=== PATIENT | female | born 1945 | race Caucasian/White ===

== ENCOUNTER 2016-06-05 10:15 | Outpatient (RCR) | payer MEDICARE, BC ==
[~2016-06-05 10:15] MED LIST: ALEVE 220MG220 MG PO; ASPI325T6 PO; ASPIRIN 32325 MG/TAB PO; ASPIRIN E.C. 8181 MG PO; AZILECT1 MG PO; B-121000 MCG PO; CALCIUM/MAGNESI1 T13 PO; CELEBREX 200MG200 MG PO; CLARITIN 1010 MG/TAB PO; COMTAN 200MG T200 MG PO; CRANBERRY500 M3 PO; FERROUS SU325 MG/TAB PO; FIBER0.52 GM PO; FIBERCON PO; FISH OIL 1000MG1 CAP PO; FOLIC ACID0.4 MG PO; GLUCOSAMINE HCL; GLUCOSAMINE MSM1 TAB PO; LUTEIN 15 MG-0.1 SGL PO; MILK OF MA400 MG/52 PO; MULTI VITAMINS1 TAB PO; MULTIVITAMIN PO; NATURE'S BLE1000 MCG PO; NORCO 325 MG-7.1 TAB PO; OXAYDO5 MG PO; PARCOPA 25/101 UDTAB PO; REQUIP XL12 MG PO; SINEMET 25/101 UDTAB PO; VITAMIN C500 MG PO; VITAMIN D 1001000 IU PO; ZOCOR 20MG20 MG PO; ZOFRAN 4MG T4 MG/TAB PO
== END 2016-06-06 | disposition still patient (30) ==
LOC: WSPT
DX: Z96.651 Presence of right artificial knee joint (principal)
CPT/HCPCS: G8978-GP; G8979-GP

== ENCOUNTER 2016-07-15 10:00 | Outpatient (RCR) | payer MEDICARE, BC | END 2016-07-25 11:50 | disposition still patient (30) | LOC: WSPT 10:00 | DX: Z96.651 Presence of right artificial knee joint (principal) | CPT/HCPCS: G0283-GP; G8978-GP; G8979-GP; G8980-GP ==

== ENCOUNTER 2016-09-27 09:30 | Outpatient (RCR) | payer MEDICARE, BC | END 2016-12-19 | disposition still patient (30) | LOC: WSPT | DX: Z96.651 Presence of right artificial knee joint (principal) | CPT/HCPCS: G8978-GP; G8979-GP ==

== ENCOUNTER → 2017-04-23 | Outpatient (CLI) | payer MEDICARE, BC | LOC: MC.RAD 11:00 | DX: Z12.31 Encounter for screening mammogram for malignant neoplasm of breast (principal) ==

== ENCOUNTER → 2017-06-27 | Outpatient (CLI) | payer MEDICARE, BC | LOC: ZCOL.LAB 14:05 | DX: L89.893 Pressure ulcer of other site, stage 3 (principal) ==

== ENCOUNTER → 2017-07-11 | Outpatient (CLI) | payer MEDICARE, BC | LOC: ZCOL.LAB 15:07 | DX: L97.509 Non-pressure chronic ulcer of other part of unspecified foot with unspecified severity (principal); Z88.1 Allergy status to other antibiotic agents; Z88.5 Allergy status to narcotic agent ==

== ENCOUNTER → 2017-07-29 | Outpatient (CLI) | payer MEDICARE, BC | LOC: ZCOL.LAB 11:48 | DX: L97.519 Non-pressure chronic ulcer of other part of right foot with unspecified severity (principal) ==

== ENCOUNTER → 2017-09-11 | Outpatient (CLI) | payer MEDICARE, BC ==
[2017-09-11 13:41] LABS: CREATININE, serum 0.62 mg/dL (0.52-1.25)
== END ==
LOC: COL.LAB 13:10
PROVIDERS: Internal Medicine Cardiovascular Disease
DX: Z01.89 Encounter for other specified special examinations (principal)

== ENCOUNTER → 2018-05-11 | Outpatient (CLI) | payer MEDICARE, BC | LOC: MC.RAD 09:56 | DX: Z12.31 Encounter for screening mammogram for malignant neoplasm of breast (principal) ==

== ENCOUNTER 2018-06-28 23:47 | Emergency (ER) | payer MEDICARE, BC ==
[~2018-06-28] VITALS: Ht 162.6 cm; Wt 61.4 kg
[2018-06-28 23:55] VITALS: BP 155/72; TEMP 97.7
[2018-06-29] MEDS ORDERED: LIDODERM 5% PATC1 EA TP (01:15)
[2018-06-29] MEDS ORDERED: ZOFRAN 4MG T4 MG/TAB PO (01:15)
[2018-06-29 01:50] VITALS: PULSE 71
== END 2018-06-29 01:50 | disposition home or self-care (01) ==
LOC: COL.ER 23:47
DX: S20.212A Contusion of left front wall of thorax, initial encounter (principal); G20 Parkinson's disease; E78.5 Hyperlipidemia, unspecified; W01.0XXA Fall on same level from slipping, tripping and stumbling without subsequent striking against object, initial encounter

== ENCOUNTER 2019-01-18 14:15 | Outpatient (RCR) | payer MEDICARE, BC ==
[~2019-01-18 14:15] MED LIST changes: +LIDODERM 5% PATC1 EA TP
== END 2019-02-28 ==
LOC: WSPT
DX: M23.51 Chronic instability of knee, right knee (principal)

== ENCOUNTER 2019-03-10 20:17 | Emergency (ER) | payer MEDICARE, BC ==
[~2019-03-10] VITALS: Ht 162.6 cm; Wt 61.4 kg
[2019-03-10 20:27] VITALS: TEMP 98.6
[2019-03-10 21:51] VITALS: BP 122/55; PULSE 82
== END 2019-03-10 21:51 | disposition home or self-care (01) ==
LOC: COL.ER 20:17
DX: S01.01XA Laceration without foreign body of scalp, initial encounter (principal); G20 Parkinson's disease; E78.00 Pure hypercholesterolemia, unspecified; R40.2412 Glasgow coma scale score 13-15, at arrival to emergency department; W19.XXXA Unspecified fall, initial encounter; Y92.009 Unspecified place in unspecified non-institutional (private) residence as the place of occurrence of the external cause

== ENCOUNTER → 2019-03-22 | Outpatient (CLI) | payer MEDICARE, BC ==
[2019-03-22 10:51] VITALS: BP 163/70; PULSE 84; TEMP 98.1
== END ==
LOC: COL.ER 10:47
DX: S01.01XD Laceration without foreign body of scalp, subsequent encounter (principal); X58.XXXD Exposure to other specified factors, subsequent encounter

== ENCOUNTER 2019-03-24 10:45 | Emergency (ER) | payer MEDICARE, BC ==
[~2019-03-24] VITALS: Ht 162.6 cm; Wt 62.7 kg
[2019-03-24 10:56] VITALS: TEMP 97.4
[2019-03-24] MEDS ORDERED: NORCO 325 MG-51 TAB PO (12:54)
[2019-03-24] MEDS ORDERED: ZOFRAN ODT4 MG PO (12:54)
[2019-03-24 13:50] VITALS: BP 150/81; PULSE 70
== END 2019-03-24 13:50 | disposition home or self-care (01) ==
LOC: COL.ER 10:45
DX: R07.89 Other chest pain (principal); G20 Parkinson's disease; Z79.82 Long term (current) use of aspirin; W19.XXXA Unspecified fall, initial encounter; W22.8XXA Striking against or struck by other objects, initial encounter

== ENCOUNTER → 2019-06-10 | Outpatient (CLI) | payer MEDICARE, BC ==
[~2019-06-10] MED LIST changes: +NORCO 325 MG-51 TAB PO; +ZOFRAN ODT4 MG PO
== END ==
LOC: MC.RAD 15:36
DX: Z12.31 Encounter for screening mammogram for malignant neoplasm of breast (principal); Z95.0 Presence of cardiac pacemaker

== ENCOUNTER 2020-01-20 13:09 | Outpatient (CLI) | payer MEDICARE, BC ==
[~2020-01-20] VITALS: Ht 162.6 cm; Wt 66.3 kg
[2020-01-20] VITALS (8 sets, daily range): BP systolic 137–156; BP diastolic 68–82; PULSE 64–80
[~2020-01-20 13:09] MED LIST changes: +CYMBALTA 60MG60 MG PO; +MOBIC 7.5MG7.5 MG PO; +TYLENOL 325MG325 MG PO; -VITAMIN D 1001000 IU PO; +VITAMIN D31000 IU PO
--- NOTE | 2020-01-20 16:05 | NUR ---
Discharge instructions given to pt.Pt verbalizes understanding.Pt escorted out via Wheelchair by this nurse.
== END 2020-01-20 16:55 | disposition home or self-care (01) ==
LOC: COL.RAD 13:09
DX: M43.16 Spondylolisthesis, lumbar region (principal); M54.16 Radiculopathy, lumbar region; M48.061 Spinal stenosis, lumbar region without neurogenic claudication; M51.26 Other intervertebral disc displacement, lumbar region; M47.816 Spondylosis without myelopathy or radiculopathy, lumbar region; S32.030A Wedge compression fracture of third lumbar vertebra, initial encounter for closed fracture; Z98.890 Other specified postprocedural states
CPT/HCPCS: Q9965

== ENCOUNTER 2020-04-10 13:30 | Outpatient (RCR) | payer MEDICARE, BC | END 2020-04-11 | disposition home or self-care (01) | LOC: WSPT | DX: G20 Parkinson's disease (principal); M54.5 Low back pain; M25.561 Pain in right knee; G89.29 Other chronic pain ==

== ENCOUNTER 2020-05-08 11:00 | Outpatient (RCR) | payer MEDICARE, BC | END 2020-05-15 | disposition home or self-care (01) | LOC: WSPT | DX: M54.40 Lumbago with sciatica, unspecified side (principal); M25.561 Pain in right knee ==

== ENCOUNTER 2020-06-05 11:15 | Outpatient (RCR) | payer MEDICARE, BC | END 2020-06-07 12:46 | disposition home or self-care (01) | LOC: WSC 11:15 | DX: M25.561 Pain in right knee (principal); M54.40 Lumbago with sciatica, unspecified side ==

== ENCOUNTER → 2020-06-13 | Outpatient (CLI) | payer MEDICARE, BC | LOC: MC.RAD 10:27 | DX: Z12.31 Encounter for screening mammogram for malignant neoplasm of breast (principal); R92.2 Inconclusive mammogram ==

== ENCOUNTER 2020-11-10 18:40 | Emergency (ER) | payer MEDICARE, BC ==
[~2020-11-10] VITALS: Ht 162.6 cm; Wt 63.6 kg
[2020-11-10 20:30] VITALS: BP 122/64; PULSE 72; TEMP 97.4
== END 2020-11-10 20:30 | disposition home or self-care (01) ==
LOC: COL.ER 18:40
DX: S01.01XA Laceration without foreign body of scalp, initial encounter (principal); G20 Parkinson's disease; Z79.899 Other long term (current) drug therapy; W01.198A Fall on same level from slipping, tripping and stumbling with subsequent striking against other object, initial encounter; Y92.009 Unspecified place in unspecified non-institutional (private) residence as the place of occurrence of the external cause

== ENCOUNTER → 2020-11-21 | Outpatient (CLI) | payer MEDICARE, BC ==
[2020-11-21 11:30] VITALS: BP 126/57; PULSE 68; TEMP 97.7
== END ==
LOC: COL.ER 11:17
DX: Z48.02 Encounter for removal of sutures (principal)

== ENCOUNTER 2021-02-13 12:52 | Emergency (ER) | payer MEDICARE, BC ==
[~2021-02-13] VITALS: Ht 162.6 cm; Wt 56.8 kg
[2021-02-13 13:06] VITALS: TEMP 98.4
[2021-02-13 13:58] VITALS: BP 129/71; PULSE 66
== END 2021-02-13 13:58 | disposition home or self-care (01) ==
LOC: COL.ER 12:52
DX: S09.90XA Unspecified injury of head, initial encounter (principal); S01.01XA Laceration without foreign body of scalp, initial encounter; G20 Parkinson's disease; Z79.899 Other long term (current) drug therapy; W19.XXXA Unspecified fall, initial encounter; W22.03XA Walked into furniture, initial encounter; Y92.000 Kitchen of unspecified non-institutional (private) residence as the place of occurrence of the external cause

== ENCOUNTER → 2021-02-22 | Outpatient (CLI) | payer MEDICARE, BC ==
[2021-02-22 13:33] VITALS: BP 132/79; PULSE 80; TEMP 98.8
== END ==
LOC: COL.ER 13:18
DX: Z48.02 Encounter for removal of sutures (principal)

== ENCOUNTER 2021-09-18 17:56 | Emergency (ER) | payer MEDICARE, BC ==
[~2021-09-18] VITALS: Ht 162.6 cm; Wt 50.0 kg
[2021-09-18 18:08] VITALS: TEMP 98.7
[2021-09-18 20:00] VITALS: BP 153/96; PULSE 72
== END 2021-09-18 20:15 | disposition home or self-care (01) ==
LOC: COL.ER 17:56
DX: S01.01XA Laceration without foreign body of scalp, initial encounter (principal); W10.9XXA Fall (on) (from) unspecified stairs and steps, initial encounter; W22.8XXA Striking against or struck by other objects, initial encounter

== ENCOUNTER 2023-05-28 18:54 | Inpatient (IN) | payer MEDICARE, BC ==
[~2023-05-28] VITALS: Ht 162.6 cm; Wt 44.0 kg
[~2023-05-28 18:54] MED LIST changes: +CLEOCIN HCL300 MG PO; +ELDEPRYL 5MG5 MG/CAP PO; +LIPITOR 40MG TA40 MG PO
[2023-05-28] MEDS ORDERED: NS 1,000 ML IV ONE (19:15)
[2023-05-28 19:34] LABS: BASO % 0.5 % (0.0-2.0); EOS # 0.2 K/mm3 (0.0-0.7); EOS % 2.6 % (0.0-4.0); GRAN % 54.7 % (42.2-75.2); HEMATOCRIT 38.4 % (37.0-47.0); HEMOGLOBIN 12.3 g/dl (12.5-16.0); LYMPH # 2.4 K/mm3 (1.2-3.4); LYMPH % 33.2 % (20.0-51.0); MEAN CELL VOLUME 102 fl (80.0-100.0); MEAN CORPUSCULAR HEMOGLOBIN 33 pg (27-31); MEAN CORPUSCULAR HGB CONC 32 g/dl (33.0-37.0); MEAN PLATELET VOLUME 10.7 fl (7.4-10.4); MONO # 0.6 K/mm3 (0.1-0.6); MONO % 8.7 % (1.7-9.3); PLATELET COUNT 247 K/mm3 (130-400); RED BLOOD COUNT 3.76 M/mm3 (4.10-5.30); REDCELL DISTRIBUTION WIDTH-CV 13.1 % (11.5-14.5)
[2023-05-28 19:39] LABS: INR 1.1 (0.8-3.0); PROTHROMBIN TIME 11.7 SECONDS (9.7-12.8)
[2023-05-28 19:42] LABS: PARTIAL THROMBOPLASTIN TIME 27.9 SECONDS (26.0-37.0)
[2023-05-28 19:50] LABS: ALKALINE PHOSPHATASE 56 U/L (40-150); ANION GAP 17 mmol/L (7-16); AST,SGOT 16 U/L (5-34); BILIRUBIN,TOTAL 0.5 mg/dL (0.2-1.2); BLOOD UREA NITROGEN 13 mg/dL (10-20); CALCIUM 10.1 mg/dL (8.4-10.2); CARBON DIOXIDE 23 mmol/L (23-31); CHLORIDE 100 mmol/L (98-107); CREATININE, serum 0.82 mg/dL (0.57-1.11); GLUCOSE 146 mg/dL (70-99); SODIUM 140 mmol/L (136-145); TOTAL PROTEIN 7.1 gm/dL (6.2-8.1)
[2023-05-28 19:56] LABS: ALANINE AMINOTRANSFERASE < 6 U/L (0-55)
[2023-05-28 19:58] LABS: TROPONIN-I 0.014 ng/mL (0.00-0.033)
[2023-05-28 20:02] LABS: COLLECTION METHOD IN
[2023-05-28] MEDS ORDERED: Iohexol 300 - 100 ML VIAL IV ONE (20:25)
[2023-05-28] MEDS ORDERED: NS 74 ML IV SCH (20:26)
[2023-05-28 20:27] LABS: URINE COLOR Yellow (YELLOW)
[2023-05-28 20:28] LABS: URINE APPEARANCE Clear (CLEAR/HAZY); URINE BLOOD Negative (NEGATIVE); URINE GLUCOSE Negative (NEGATIVE); URINE KETONE Negative (NEGATIVE); URINE NITRATE Negative (NEGATIVE); URINE PROTEIN(semi-quant) Negative (NEGATIVE); URINE UROBILINOGEN 0.2 E.U/dL (0.2-1.0)
[2023-05-28 20:29] LABS: URINE RBC 0-2 /hpf (0-2)
[2023-05-28 20:30] LABS: SQUAMOUS EPITHELIAL 0-2 /hpf (0-10)
[2023-05-28 20:31] LABS: MUCOUS Present (NOT PRESENT); URINE BACTERIA Many /hpf (NONE SEEN)
[2023-05-28] MEDS ORDERED: NS 1,000 ML IV SCH (22:00)
[2023-05-28] MEDS ORDERED: NS IV SCH (22:00)
[2023-05-28] MEDS ORDERED: LABETALOL IV SCH (22:00)
[2023-05-28] MEDS ORDERED: Acetaminophen 325 MG TAB PO PRN (22:00)
[2023-05-28] MEDS ORDERED: SYMMETREL100 M1 PO (22:46)
[2023-05-28] MEDS ORDERED: SINEMET CR 50 M1 TER PO (22:47)
[2023-05-28] MEDS ORDERED: SINEMET 25/101 UDTAB PO (22:48)
[2023-05-28] MEDS ORDERED: REQUIP2 MG PO (22:50)
[2023-05-28] MEDS ORDERED: Carbidopa/Levodopa CR 25-100MG TAB PO SCH (23:01)
[2023-05-28] MEDS ORDERED: COLACE 100100 MG/CAP PO (23:02)
[2023-05-28] MEDS ORDERED: MAG OX 250 PO (23:03)
[2023-05-28] MEDS ORDERED: ZOLOFT 50MG50 MG PO (23:04)
[2023-05-28] MEDS ORDERED: MIRALAX PA17 GM/Dose PO (23:04)
[2023-05-28] MEDS ORDERED: TYLENOL 500MG500 MG PO (23:06)
[2023-05-28] MEDS ORDERED: Acetaminophen 500 MG TAB PO SCH (23:15)
[2023-05-28 23:50] VITALS: BP 149/83; PULSE 67; TEMP 97.6
--- NOTE | 2023-05-28 23:50 | NUR ---
PATIENT ARRIVED TO ICU VIA BED FROM ER. PATIENT ARRIVED ON ROOM AIR. NEURO STATUS ASSESSED. PATIENT IS A/O X4 WITH INTERMITTENT CONFUSION. PATIENT ABLE TO FOLLOW COMMANDS AT THIS TIME. PATIENT ARRIVED TO ICU WITH SHIRT, JACKET, PANTS, PURSE, AND RING. PATIENT DENIED VALUABLES TO BE SENT TO SECURITY AT THIS TIME.
[2023-05-29] VITALS (880 sets, daily range): BP systolic 131–192; BP diastolic 70–146; PULSE 50–75; TEMP 97.4–98.4; O2SAT 85–100
[2023-05-29] MEDS ORDERED: *Potassium Replacement Protocol MC SCH (00:15)
[2023-05-29] MEDS ORDERED: Potassium Chloride 100 ML IV SCH (00:15)
[2023-05-29 05:49] LABS: HEMOGLOBIN 11.8 g/dl (12.5-16.0); MEAN CELL VOLUME 98 fl (80.0-100.0); MEAN CORPUSCULAR HEMOGLOBIN 33 pg (27-31); MEAN CORPUSCULAR HGB CONC 34 g/dl (33.0-37.0); MEAN PLATELET VOLUME 9.4 fl (7.4-10.4); PLATELET COUNT 222 K/mm3 (130-400); RED BLOOD COUNT 3.57 M/mm3 (4.10-5.30)
--- NOTE | 2023-05-29 07:00 | NUR ---
Report received from NATALYA Foster; patient currently resting in bed with eyes closed. Patient has potassium being replaced and is also getting fluids through peripheral lines, bilaterally in the forearms. Patient has a Schmidt catheter in place, is on room air and vital signs are within normal limits this morning.
[2023-05-29 07:28] LABS: CALCIUM 9.1 mg/dL (8.4-10.2); CHOLESTEROL RISK RATIO 2.3; CREATININE, serum 0.68 mg/dL (0.57-1.11); POTASSIUM 3.4 mmol/L (3.5-4.5)
[2023-05-29] MEDS ORDERED: Polyethylene Glycol 3350 17 GM PDS PO SCH (08:00)
[2023-05-29] MEDS ORDERED: Magnesium Oxide 400 MG TAB PO SCH (09:00)
[2023-05-29] MEDS ORDERED: Sertraline 50 MG TAB PO SCH (09:00)
[2023-05-29] MEDS ORDERED: Docusate Sodium 100 MG CAP PO SCH (09:00)
[2023-05-29] MEDS ORDERED: rOPINIRole 1 MG TAB PO SCH (10:00)
--- NOTE | 2023-05-29 10:52 | NUR ---
funeral workers met with patient to discuss discharge planning. Patient lives in [place] with her , Gilbert, P# [phone], secondary contact is her son Alex P# [phone]. PCP is Amanda, pharmacy is [facility]. DPOA-HC is her , Gilbert, then two sons, Poli and Alex. Patient has a walker and reports sometimes she needs assistance with using the restroom. Patient's family transports her to appointments. SW met with Gilbert and patient's RN and he confirmed the above information. Gilbert asked about patient's code status. Patient is currently listed as a full code. Gilbert reported he would contact the physician's office and see if they had a DNR for her as he believed she was DNR during last stay.
[2023-05-29] MEDS ORDERED: LIPITOR 40MG TA40 MG PO (11:45)
[2023-05-29] MEDS ORDERED: ASPIRIN E.C. 8181 MG PO (11:45)
[2023-05-29] MEDS ORDERED: ATROPINE SULFATE5 ML SL (11:55)
--- NOTE | 2023-05-29 18:30 | NUR ---
Reported off to Bela Taylor RN, on medical floor. Patient taken up in wheelchair by this nurse, accompanied by her . Patient's belongings were sent up with patient. Patient was taken up with IV fluids running and a Schmidt catheter in place. Patient's vital signs were within normal limits and patient was on room air. Patient's NIH stroke scale scores were 3 for the majority of the day and patient was increasingly more awake and alert as the day went on. Patient was stable upon transfer; Bela Taylor and two techs met us in the room and patient was placed in the bed and dinner was going to be ordered.
[2023-05-29] MEDS ORDERED: Atorvastatin 40 MG TAB PO SCH (21:00)
[2023-05-30] VITALS (18 sets, daily range): BP systolic 114–191; BP diastolic 64–89; PULSE 55–82; TEMP 96.5–98
--- NOTE | 2023-05-30 01:27 | NUR ---
report received from Bela Taylor RN, pt not on unit at time report was given. pt arrived around 1840 from ICU. patient alert and oriented x3 with some forgetfullness with the year. left sided weakness noted, pt transfer to bedside commode with x1 assist pivot. pt taken down to CT at 1999 via wheelchair. pt denies chest pain and shortness of breath, able to respond to commands and orientation questions appropriately with some aphasia and dysarthia noted. small scattered bruising on extremities, no additional remarkable skin findings noted. pt NPO at midnight, verbally understood. IV in LF and RF ar patent, sites are clean dry and intact with NS running at 75 ml/hr in the RF. johnson draining a cloudy yellow with slight pink tinted urine. pt has no further needs, questions, or concerns at this time. fall precautions in place, call light within reach. will continue to monitor.
[2023-05-30 07:57] LABS: CALCIUM 8.5 mg/dL (8.4-10.2); CREATININE, serum 0.66 mg/dL (0.57-1.11); POTASSIUM 3.4 mmol/L (3.5-4.5)
[2023-05-30] MEDS ORDERED: Potassium Chloride 100 ML IV SCH (08:15)
[2023-05-30 08:16] LABS: BASO % 0.5 % (0.0-2.0); EOS # 0.2 K/mm3 (0.0-0.7); EOS % 2.7 % (0.0-4.0); GRAN # 3.8 K/mm3 (1.4-6.5); GRAN % 67.8 % (42.2-75.2); HEMOGLOBIN 11.3 g/dl (12.5-16.0); LYMPH # 1.1 K/mm3 (1.2-3.4); LYMPH % 20.2 % (20.0-51.0); MEAN CELL VOLUME 101 fl (80.0-100.0); MEAN CORPUSCULAR HEMOGLOBIN 33 pg (27-31); MEAN CORPUSCULAR HGB CONC 32 g/dl (33.0-37.0); MEAN PLATELET VOLUME 10.6 fl (7.4-10.4); MONO # 0.5 K/mm3 (0.1-0.6); MONO % 8.6 % (1.7-9.3); PLATELET COUNT 202 K/mm3 (130-400); RED BLOOD COUNT 3.48 M/mm3 (4.10-5.30); REDCELL DISTRIBUTION WIDTH-CV 13.3 % (11.5-14.5)
[2023-05-30 08:21] LABS: HEMATOCRIT 35.1 % (37.0-47.0)
[2023-05-30] MEDS ORDERED: Regadenoson 0.08 MG/ML 5 ML SYRINGE IV SCH (09:12)
--- NOTE | 2023-05-30 11:09 | NUR ---
SW Student faxed clinical updates to [facility] (fax#[phone]).
--- NOTE | 2023-05-30 13:30 | NUR ---
PATIENT HAD BLOOD PRESSURE OF 191/86. NOTIFIED PROVIDER. LABETALOL DOSE OF 10MG ORDERED AND ADMINISTERED. WILL RECHECK. PATIENT IS RESTING COMFORTABLY IN BED. X3 BED RAILS UP. AT BEDSIDE.
[2023-05-30] MEDS ORDERED: ELIQUIS 5MG PO (13:53)
[2023-05-30] MEDS ORDERED: TOPROL XL 25MG25 MG PO (13:55)
[2023-05-30] MEDS ORDERED: hydrALAZINE 20 MG/ML 1 ML VIAL IV ONE (14:00)
--- NOTE | 2023-05-30 14:19 | NUR ---
PATIENT BLOOD PRESSURE RECHECK WAS 182/75 PROVIDER ORDERED 1X DOSE OF HYDRALAZINE 10MG.
--- NOTE | 2023-05-30 14:50 | NUR ---
sample shoe inspector and reworker was informed by NATALYA Patel that pt's , Gilbert might need assistance with a ride back to [facility]. SW called [facility] and they confirmed they do not provide transportation. LIZA spoke with Gilbert and he said they feel like they can manage as his son is also coming to assist. Gilbert inquired about HH as they have used it in the past and benefitted from it. He reports that they have used [facility] in the past. He asked for them to call the AL manager er to schedule. SW Student Mckenzie faxed discharge orders and sent [facility] a referral. Discharge Plan: [facility] with HH?
[2023-05-30] MEDS ORDERED: MULTAQ400 MG PO (14:51)
--- NOTE | 2023-05-30 15:43 | NUR ---
AT BEDSIDE. WENT OVER DISCHARGE PAPERWORK. ACKNOWLEDGED UNDERSTANDING OF FOLLOW UP APPOINTMENTS,NEW MEDICATIONS ADDED. IV'S DISCONTINUED TELEMETRY DISCONTINUED. PATIENT WAS DRESSED BY NURSING STAFF AND TRANSPORTED TO ED ENTRANCE VIA WHEELCHAIR TO DISCHARGE BACK TO [facility] WITH .
--- NOTE | 2023-06-02 13:50 | NUR ---
harm reduction worker contacted Davy at [facility] and confirmed that they received the home health orders and plan to admit the patient for care.
== END 2023-05-30 15:35 | disposition home or self-care (01) | DRG 57 ==
LOC: COL.ER 18:54 → ICU 22:02 → MEDICAL 05-29 18:34
PROVIDERS: Emergency Medicine; Nurse Practitioner Family; Physician Assistant; ADMIT Internal Medicine
DX: G81.94 Hemiplegia, unspecified affecting left nondominant side (principal); R47.01 Aphasia; E78.5 Hyperlipidemia, unspecified; I48.91 Unspecified atrial fibrillation; G20.A1 Parkinson's disease without dyskinesia, without mention of fluctuations; G25.81 Restless legs syndrome; F32.A Depression, unspecified; D64.9 Anemia, unspecified; E87.6 Hypokalemia; R73.9 Hyperglycemia, unspecified
CPT/HCPCS: A9500-JZ; J0360; J1920; J2785; J3101; J3480; J7030; Q9967

== ENCOUNTER 2024-01-04 13:22 | Observation (INO) | payer MEDICARE, BC ==
[~2024-01-04] VITALS: Ht 160 cm; Wt 88.0 kg
[~2024-01-04 13:22] MED LIST changes: +ATROPINE SULFATE5 ML SL; +COLACE 100100 MG/CAP PO; +ELIQUIS 5MG PO; +K-TAB10 PO; +MAG OX 250 PO; +MIRALAX PA17 GM/Dose PO; +MULTAQ400 MG PO; +REQUIP2 MG PO; +SINEMET CR 50 M1 TER PO; +SYMMETREL100 M1 PO; +TOPROL XL 25MG25 MG PO; +TYLENOL 500MG500 MG PO; +VANTIN 200200 MG/TAB PO; +ZOLOFT 50MG50 MG PO
[2024-01-04] MEDS ORDERED: NS 1,000 ML IV SCH ×2 (14:00→16:00)
[2024-01-04 14:10] LABS: BASO # 0.1 K/mm3 (0.0-0.2); BASO % 0.8 % (0.0-2.0); EOS # 0.1 K/mm3 (0.0-0.7); EOS % 1.4 % (0.0-4.0); GRAN # 4.2 K/mm3 (1.4-6.5); HEMATOCRIT 46.2 % (37.0-47.0); HEMOGLOBIN 15.2 g/dl (12.5-16.0); LYMPH # 1.7 K/mm3 (1.2-3.4); LYMPH % 24.8 % (20.0-51.0); MEAN CELL VOLUME 100 fl (80.0-100.0); MEAN CORPUSCULAR HEMOGLOBIN 33 pg (27-31); MEAN CORPUSCULAR HGB CONC 33 g/dl (33.0-37.0); MEAN PLATELET VOLUME 9.1 fl (7.4-10.4); MONO # 0.7 K/mm3 (0.1-0.6); MONO % 9.8 % (1.7-9.3); PLATELET COUNT 344 K/mm3 (130-400); RED BLOOD COUNT 4.62 M/mm3 (4.10-5.30); REDCELL DISTRIBUTION WIDTH-CV 13.6 % (11.5-14.5)
[2024-01-04 14:24] LABS: ALBUMIN 4.5 g/dL (3.4-4.8); ALKALINE PHOSPHATASE 72 U/L (40-150); ANION GAP 15 mmol/L (7-16); AST,SGOT 14 U/L (5-34); BILIRUBIN,TOTAL 0.5 mg/dL (0.2-1.2); BLOOD UREA NITROGEN 17 mg/dL (10-20); C-REACTIVE PROTEIN 0.06 mg/dL (0.00-0.50); CALCIUM 10.6 mg/dL (8.4-10.2); CHLORIDE 99 mEq/L (98-107); CREATININE, serum 1.03 mg/dL (0.57-1.11); GLUCOSE 98 mg/dL (70-99); SODIUM 136 mEq/L (136-145); TOTAL PROTEIN 8.4 g/dl (6.2-8.1)
[2024-01-04 14:31] LABS: ALANINE AMINOTRANSFERASE < 6 U/L (0-55)
[2024-01-04 15:10] LABS: COLLECTION METHOD CATHETER
[2024-01-04 15:14] LABS: URINE APPEARANCE CLEAR (CLEAR/HAZY); URINE BLOOD NEGATIVE (NEGATIVE); URINE COLOR YELLOW (YELLOW); URINE GLUCOSE NEGATIVE (NEGATIVE); URINE KETONE NEGATIVE (NEGATIVE); URINE NITRATE NEGATIVE (NEGATIVE); URINE PROTEIN(semi-quant) NEGATIVE (NEGATIVE); URINE UROBILINOGEN 0.2 E.U/dL (0.2-1.0)
[2024-01-04] MEDS ORDERED: *Potassium Replacement Protocol MC SCH (16:00)
[2024-01-04 17:47] VITALS: BP 154/88; PULSE 65; TEMP 97.3
[2024-01-04] MEDS ORDERED: Sertraline 50 MG TAB PO SCH (17:56)
[2024-01-04] MEDS ORDERED: rOPINIRole 1 MG TAB PO SCH (18:00)
--- NOTE | 2024-01-04 18:11 | NUR ---
PATIENT ARRIVED TO MEDICAL UNIT. ORIENTED PATIENT AND DIL TO ROOM. IVF INFUSING. UPDATED ON PLAN OF CARE. PATIENT RESTING IN BED. ADMISSION INTAKE AND ASSESSMENT COMPLETED. MED REC UPDATED. BED ALARMS IN PLACE, CALL LIGHT WITHIN REACH. WILL CONTINUE TO MONITOR.
[2024-01-04 18:17] VITALS: BP_SYST 154
[2024-01-04] MEDS ORDERED: NORVASC2.5 MG PO (19:05)
[2024-01-04 19:12] VITALS: BP 146/83; PULSE 64; TEMP 97.8
[2024-01-04 20:00] VITALS: BP_SYST 128
--- NOTE | 2024-01-04 20:30 | NUR ---
Initial shift assessment done-oriented to person and place, knows year/president, does not know month/day-- mumbling at times/hard to understand, incontinent of urine-- tried the Purewick but pt too thin/moving in bed so not effective. Taking pills with water- no issues. Cooperative. Bed alarm on- call light demonstrated for patient. Tele on- Sinus dys. IV fluids of NS at 75cc/hr.
[2024-01-04] MEDS ORDERED: Atorvastatin 40 MG TAB PO SCH (21:00)
[2024-01-04] MEDS ORDERED: Metoprolol Tartrate 25 MG TAB PO SCH (21:00)
[2024-01-04 23:56] VITALS: BP 128/85; PULSE 65; TEMP 97.8
[2024-01-05] VITALS (12 sets, daily range): BP systolic 113–183; BP diastolic 71–90; PULSE 69–87; TEMP 97.4–98.2
--- NOTE | 2024-01-05 05:30 | NUR ---
Has been sleeping well all night-- repositioned every couple hours, incontinent of urine x3, stoolx1, VSS, remain hard to understand/mumbling at times, does not want to be disturbed,curled up on her side-warm blanket given.
--- NOTE | 2024-01-05 07:00 | NUR ---
Patient sleeping. Bedside report. Easily arousable, oriented to self. Pt bottom checked, she had an incontinent episode. Hygiene provided. Fluids hanged. Pt came back to sleep.
[2024-01-05] MEDS ORDERED: hydrALAZINE 25 MG TAB PO SCH (08:31)
[2024-01-05] MEDS ORDERED: Apixaban 5 MG TABLET PO SCH (09:00)
[2024-01-05] MEDS ORDERED: amLODIPine 5 MG TAB PO SCH (09:00)
[2024-01-05] MEDS ORDERED: Lisinopril 10 MG TAB PO SCH (09:00)
--- NOTE | 2024-01-05 09:09 | NUR ---
SW attended clinical rounds with team. Patient able to answer simple yes/no questions with physician. SW called patient's Gilbert ([phone]) and son Alex ([phone]). is patient's DPOA with two sons, Alex and Poli listed as alternate agents. Patient resides at [facility] in [place], sees Dr. Patel as her PCP and uses [facility] pharmacy. Patient is wheelchair bound. states patient knows people but is not aware of situations around her. Plan is to return to assisted living at discharge with and son to drive her. Discharge plan: Home to [facility]
[2024-01-05 09:48] LABS: BASO % 0.7 % (0.0-2.0); EOS # 0.1 K/mm3 (0.0-0.7); EOS % 1.6 % (0.0-4.0); GRAN # 3.9 K/mm3 (1.4-6.5); GRAN % 71.1 % (42.2-75.2); HEMATOCRIT 39.5 % (37.0-47.0); LYMPH % 18.1 % (20.0-51.0); MEAN CELL VOLUME 101 fl (80.0-100.0); MEAN CORPUSCULAR HEMOGLOBIN 33 pg (27-31); MEAN CORPUSCULAR HGB CONC 32 g/dl (33.0-37.0); MEAN PLATELET VOLUME 8.8 fl (7.4-10.4); MONO # 0.5 K/mm3 (0.1-0.6); MONO % 8.1 % (1.7-9.3); PLATELET COUNT 304 K/mm3 (130-400); RED BLOOD COUNT 3.91 M/mm3 (4.10-5.30); REDCELL DISTRIBUTION WIDTH-CV 13.5 % (11.5-14.5)
[2024-01-05 10:00] LABS: HEMOGLOBIN 12.8 g/dl (12.5-16.0)
[2024-01-05 10:01] LABS: ALBUMIN 3.8 g/dL (3.4-4.8); CREATININE, serum 0.78 mg/dL (0.57-1.11); MAGNESIUM 1.7 mg/dL (1.6-2.6); PHOSPHOROUS 3.1 mg/dL (2.3-4.7); POTASSIUM 4.3 mEq/L (3.5-4.5)
--- NOTE | 2024-01-05 12:10 | NUR ---
D: Mail Examiner stopped by room on rounds. A: Pt was resting and content. Mail Examiner spoke with her . No needs right now. P: Mail Examiner informed pt's that if she needed anything from the reserves clerk area to let their nurse know. Mail Examiner will follow up as needed.
--- NOTE | 2024-01-05 12:39 | NUR ---
LIZA faxed clinicals to [facility].
[2024-01-05] MEDS ORDERED: CENA K20 MEQ/15 PO (13:42)
--- NOTE | 2024-01-05 17:28 | NUR ---
Patient's stayed with patient assisting her with eating. Patient ate all her 3 meals. More alert at this time. Getting fluids per orders.
[2024-01-05] MEDS ORDERED: Acetaminophen 325 MG TAB PO PRN (21:00)
[2024-01-05] MEDS ORDERED: Carbidopa/Levodopa CR 25-100MG TAB PO SCH (22:00)
[2024-01-05] MEDS ORDERED: rOPINIRole 1 MG TAB PO SCH (22:00)
[2024-01-06 01:37] VITALS: BP_SYST 164
--- NOTE | 2024-01-06 02:04 | NUR ---
patient lying in bed, alert and oriented x3. denies chest pain and shortness of breath. reports headache and discomfort in right knee, per request, DAYTON Lock notified, new orders placed. IV in LF is patent, site CDi with NS running at 75 ml/hr. right elbow abrasion noted with mepilex dressing applied, CDI. redness to sacrum, mepilex CDI, large loose BM noted, cleaned barrier cream applied. pillow to elevate heels provided. fall precautions in place, call light within reach. pt has no further needs, questions, or concerns at this time
[2024-01-06 03:06] VITALS: BP 139/76; PULSE 54; TEMP 97.6
[2024-01-06 04:14] VITALS: BP_SYST 139
--- NOTE | 2024-01-06 07:05 | NUR ---
appears to be sleeping, awakens easily and lab in to draw blood, bedside shift report received from NATALYA Valle
[2024-01-06 07:50] LABS: BASO % 0.7 % (0.0-2.0); EOS # 0.1 K/mm3 (0.0-0.7); EOS % 2.2 % (0.0-4.0); GRAN % 67.1 % (42.2-75.2); HEMATOCRIT 37.2 % (37.0-47.0); HEMOGLOBIN 12.4 g/dl (12.5-16.0); LYMPH # 1.3 K/mm3 (1.2-3.4); LYMPH % 21.9 % (20.0-51.0); MEAN CELL VOLUME 98 fl (80.0-100.0); MEAN CORPUSCULAR HEMOGLOBIN 33 pg (27-31); MEAN CORPUSCULAR HGB CONC 33 g/dl (33.0-37.0); MEAN PLATELET VOLUME 8.9 fl (7.4-10.4); MONO # 0.5 K/mm3 (0.1-0.6); MONO % 7.8 % (1.7-9.3); PLATELET COUNT 275 K/mm3 (130-400); RED BLOOD COUNT 3.79 M/mm3 (4.10-5.30); REDCELL DISTRIBUTION WIDTH-CV 13.3 % (11.5-14.5)
[2024-01-06 08:14] VITALS: BP 158/79; PULSE 59; TEMP 97.5
--- NOTE | 2024-01-06 08:15 | NUR ---
bed alarm sound and patient attempting to get out of bed, stating she has to go to the bathroom, assisted her up to bedside commode but had been incontinent of urine and stool, incontinent care provided, and full assessment completed, has area between buttocks that appears to be 0.5cn whole, when pull the folds of buttocks back can see that this is just her anatomy, KWAME Caraballo also looked at this and in agreement, assisted into recliner with chair alarm on for breakfast
[2024-01-06 08:16] LABS: ALBUMIN 3.4 g/dL (3.4-4.8); CALCIUM 8.6 mg/dL (8.4-10.2); CREATININE, serum 0.67 mg/dL (0.57-1.11); MAGNESIUM 1.6 mg/dL (1.6-2.6); PHOSPHOROUS 2.5 mg/dL (2.3-4.7); POTASSIUM 3.7 mEq/L (3.5-4.5)
[2024-01-06 08:18] VITALS: BP_SYST 158
--- NOTE | 2024-01-06 09:00 | NUR ---
resting in recliner, breakfast ordered, is alert and oriented times 2-3, earlier this am thought she was in [place], now she does report she is in [place], [place]
--- NOTE | 2024-01-06 10:00 | NUR ---
physical therapy was in to work with patient
--- NOTE | 2024-01-06 10:15 | NUR ---
remains up in chair and is assisting her with eating breakfast, Dr Esteban was in to see patient and will plan discharge later today
[2024-01-06 11:05] VITALS: BP 124/69; PULSE 71; TEMP 97.6
--- NOTE | 2024-01-06 11:07 | NUR ---
Initial visit; Patient doing well and both her and her son thanked Marketing Programs Specialist for looking in on her and wishing her continued healing.
--- NOTE | 2024-01-06 12:00 | NUR ---
discharge instructions given to patient and her , verbalizes understanding
--- NOTE | 2024-01-06 12:07 | NUR ---
discharged per WC
--- NOTE | 2024-01-06 16:03 | NUR ---
Retirement Specialist was notified by Hospitalist that patient is ready for discharge today back to [facility]. LIZA met with patient and , Gilbert about Home Health services. Gilbert advised they would prefer to work with [facility] as they have used them before. LIZA sent a referral and discharge orders to Davy at [facility]. LIZA contacted [facility] and faxed discharge orders. Discharge Plan: [facility] with [facility]
== END 2024-01-06 12:07 | disposition home or self-care (01) ==
LOC: COL.ER 13:22 → MEDICAL 15:35
PROVIDERS: Family Medicine; ADMIT Internal Medicine
DX: R40.0 Somnolence (principal); R06.02 Shortness of breath; E87.20 Acidosis, unspecified; E87.5 Hyperkalemia; N39.0 Urinary tract infection, site not specified; E78.5 Hyperlipidemia, unspecified; I11.9 Hypertensive heart disease without heart failure; I48.91 Unspecified atrial fibrillation; E86.0 Dehydration; G20.A1 Parkinson's disease without dyskinesia, without mention of fluctuations; G25.81 Restless legs syndrome; F32.A Depression, unspecified; Z79.01 Long term (current) use of anticoagulants; Z95.818 Presence of other cardiac implants and grafts; Z79.899 Other long term (current) drug therapy; Z79.82 Long term (current) use of aspirin
CPT/HCPCS: G0378; J7030

== ENCOUNTER 2024-03-07 05:59 | Emergency (ER) | payer MEDICARE, BC ==
[~2024-03-07] VITALS: Wt 35.5 kg
[~2024-03-07 05:59] MED LIST changes: +CENA K20 MEQ/15 PO; +NORVASC2.5 MG PO
[2024-03-07 06:30] VITALS: TEMP 97.3
[2024-03-07 08:26] LABS: BASO % 0.7 % (0.0-2.0); EOS # 0.1 K/mm3 (0.0-0.7); EOS % 1.8 % (0.0-4.0); GRAN # 4.3 K/mm3 (1.4-6.5); GRAN % 70.7 % (42.2-75.2); HEMOGLOBIN 11.7 g/dl (12.5-16.0); LYMPH # 1.1 K/mm3 (1.2-3.4); LYMPH % 18.8 % (20.0-51.0); MEAN CELL VOLUME 102 fl (80.0-100.0); MEAN CORPUSCULAR HEMOGLOBIN 34 pg (27-31); MEAN CORPUSCULAR HGB CONC 34 g/dl (33.0-37.0); MEAN PLATELET VOLUME 8.3 fl (7.4-10.4); MONO # 0.5 K/mm3 (0.1-0.6); MONO % 7.8 % (1.7-9.3); PLATELET COUNT 292 K/mm3 (130-400); RED BLOOD COUNT 3.44 M/mm3 (4.10-5.30); REDCELL DISTRIBUTION WIDTH-CV 13.1 % (11.5-14.5)
[2024-03-07 08:28] LABS: HEMATOCRIT 34.9 % (37.0-47.0)
[2024-03-07 08:51] LABS: ALBUMIN 3.6 g/dL (3.4-4.8); ALKALINE PHOSPHATASE 54 U/L (40-150); ANION GAP 10 mmol/L (7-16); AST,SGOT 12 U/L (5-34); BILIRUBIN,TOTAL 0.2 mg/dL (0.2-1.2); BLOOD UREA NITROGEN 14 mg/dL (10-20); CALCIUM 9.4 mg/dL (8.4-10.2); CHLORIDE 101 mEq/L (98-107); CREATININE, serum 0.76 mg/dL (0.57-1.11); GLUCOSE 98 mg/dL (70-99); LIPASE 7 U/L (8-78); POTASSIUM 3.1 mEq/L (3.5-4.5); SODIUM 140 mEq/L (136-145); TOTAL PROTEIN 6.6 g/dl (6.2-8.1)
[2024-03-07 08:53] LABS: ALANINE AMINOTRANSFERASE < 6 U/L (0-55)
[2024-03-07 09:44] VITALS: BP 153/87; PULSE 67
== END 2024-03-07 09:53 | disposition home or self-care (01) ==
LOC: COL.ER 05:59
PROVIDERS: Emergency Medicine
DX: S01.01XA Laceration without foreign body of scalp, initial encounter (principal); E87.6 Hypokalemia; I48.91 Unspecified atrial fibrillation; Z79.01 Long term (current) use of anticoagulants; W18.11XA Fall from or off toilet without subsequent striking against object, initial encounter; W22.8XXA Striking against or struck by other objects, initial encounter; Y92.121 Bathroom in nursing home as the place of occurrence of the external cause